=== PATIENT | male | born 1960 | race Two or more races ===

== ENCOUNTER 2024-07-05 11:25 | Emergency (ER) | payer OTHER ==
[~2024-07-05] VITALS: Ht 170.2 cm; Wt 70.1 kg
--- NOTE | 2024-07-05 12:08 | DVH ---
CLINICAL INDICATION: trauma TECHNIQUE: 3 radiographic views of the left wrist were obtained. Comparison: None FINDINGS/IMPRESSION: There is no evidence of acute fracture or dislocation. Moderate osteoarthrosis of the 1st carpometacarpal joint.
[2024-07-05 12:12] LABS: Basophils # (auto) 0 10 ^3/uL (0-0.2); Basophils % (auto) 0.8 % (0.0-2.0); Eosinophils # (auto) 0.1 10 ^3/uL (0-0.8); Eosinophils % (auto) 2.3 % (0.0-7.0); Hematocrit 42.6 % (41.0-53.0); Hemoglobin 14.7 g/dL (13.5-17.5); Lymphocytes # (auto) 2.2 10 ^3/uL (0.4-5.4); Lymphocytes % (auto) 38.3 % (10.0-50.0); Mean Corpuscular Hemoglobin 33.2 pg (28.0-32.0); Mean Corpuscular Hgb Conc. 34.6 g/dL (32.0-36.0); Monocytes # (auto) 0.6 10 ^3/uL (0-1.3); Monocytes % (auto) 9.9 % (0.0-12.0); Neutrophils # (auto) 2.8 10 ^3/uL (1.6-8.6); Neutrophils % (auto) 48.7 % (37.0-80.0); Nucleated Red Blood Cells % 0.1 %; Platelet Count (auto) 160 10^3/uL (140-450); Red Blood Cells 4.43 10^6/uL (4.5-5.90); White Blood Cell 5.7 10^3/uL (4.4-10.8)
--- NOTE | 2024-07-05 12:14 | ED.PDOC ---
History of Present Illness HPI Comments 64-year-old male who comes in with chief complaint of left wrist injury. The patient was cutting a pipe and then the pipe struck the left wrist and the patient has suffered a deep laceration to the area. The patient was having some issues with extending the left wrist. There has been no vomiting or diarrhea. The patient denies any other complaints at this time. Patient was not up-to-date with his tetanus status. Chief Complaint: Laceration Time Seen by MD: 11:48 Reviewed Notes: Nurses Notes, Medications, Allergies (NKDA) Allergies: Coded Allergies: NO KNOWN ALLERGIES (Unverified , 07/05/24) Information Source: Patient Mode of Arrival: Ambulatory Severity: Moderate Duration: Since onset Prehospital treatment: None Location: Left wrist laceration with some bleeding Past Medical History PAST MEDICAL HISTORY: Denies Surgical History: Denies all surgeries Family History Family History: Family hx of DM Social History Smoker: Non-Smoker Alcohol: Denies ETOH Use Drugs: Denies Drug Use Lives In: Home Constitutional: denies: chills, diaphoresis, fatigue, fever, malaise, sweats, weakness, others EENTM: denies: blurred vision, double vision, ear bleeding, ear discharge, ear drainage, ear pain, ear ringing, eye pain, eye redness, hearing loss, mouth pain, mouth swelling, nasal discharge, nose bleeding, nose congestion, nose pain, photophobia, tearing, throat pain, throat swelling, voice changes, others Respiratory: denies: cough, hemoptysis, orthopnea, SOB at rest, shortness of breath, SOB with excertion, stridor, wheezing, others Cardiovascular: denies: chest pain, dizzy spells, diaphoresis, Dyspnea on exertion, edema, irregular heart beat, left arm pain, lightheadedness, palpitations, PND, syncope, others Gastrointestinal: denies: abdomen distended, abdominal pain, blood streaked bowels, constipated, diarrhea, dysphagia, difficulty swallowing, hematemesis, melena, nausea, poor appetite, poor fluid intake, rectal bleeding, rectal pain, vomiting, others Genitourinary: denies: burning, dysuria, flank pain, frequency, hematuria, incontinence, penile discharge, penile sore, pain, testicle pain, testicle swelling, urgency, others Neurological: denies: dizziness, fainting, headache, left sided numbness, left sided weakness, numbness, paresthesia, pre-existing deficit, right sided numbness, right sided weakness, seizure, speech problems, tingling, tremors, weakness, others Musculoskeletal: reports: others (Left wrist injury); denies: back pain, gout, joint pain, joint swelling, muscle pain, muscle stiffness, neck pain Integumetry: reports: laceration (Laceration left wrist); denies: bruises, change in color, change in hair/nails, dryness, lesions, lumps, rash, wounds, others Allergic/Immunocompromised: denies: Difficulty Healing, Frequent Infections, Hives, Itching, others Hematologic/Lymphatic: denies: anemia, blood clots, easy bleeding, easy bruising, swollen glands, others Endocrine: denies: excessive hunger, excessive sweating, excessive thirst, excessive urination, flushing, intolerance to cold, intolerance to heat, unexplained weight gain, unexplained weight loss, others Psychiatric: denies: anxiety, bipolar disorder, depression, hopeless, panic disorder, schizophrenia, sleepless, suicidal, others Physical Exam General Appearance: Moderate Distress HEENT: Normal ENT Inspection, Pharynx Normal, TMs Normal Neck: Full Range of Motion, Non-Tender, Normal, Normal Inspection Respiratory: Chest Non-Tender, Lungs Clear, No Accessory Muscle Use, No Respiratory Distress, Normal Breath Sounds Cardiovascular: No Edema, No JVD, No Murmur, No Gallop, Normal Peripheral Pulses, Regular Rate/Rhythm Breast Exam: Deferred Gastrointestinal: No Organomegaly, Non Tender, No Pulsatile Mass, Normal Bowel Sounds, Soft Genitalia: Deferred Pelvic: Deferred Rectal: Deferred Extremities: No calf tenderness, Normal capillary refill, No pedal edema Musculoskeletal : Location: Left Extremity Location: Wrist (Large laceration that has complex and deep to the left wrist) Apperance: Normal Neurologic: Alert, 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 Was a procedure done?: Yes Sedation Sedation?: No Laceration Repair : Location Left hand dorsum of the left hand Length 7 cm Anesthetic: Lidocaine, Without epi Laceration Repair Prep: Saline Laceration Repair Wound Comple: epidermis/dermis repair Laceration Repair: Number of sutures (Seven sutures), Layers Closed (One layer closure), Size (Four 0 Ethilon), Nylon Informed consent obtained: Yes Risks, benefits, and alternati: Yes Differential Dx Considerations may include: Wrist laceration, fracture, strain X-Ray, Labs, Meds, VS Vital Signs Date Time Temp Pulse Resp B/P (MAP) Pulse Ox O2 Delivery O2 Flow Rate FiO2 07/05/24 16:45 87 19 118/67 (84) 98 07/05/24 16:00 69 20 91/45 (60) 96 07/05/24 15:00 81 16 121/70 (87) 97 07/05/24 14:42 97 15 97 Room Air* 0 21 07/05/24 14:42 98.0 97 15 118/74 (89) 97 98.0 07/05/24 12:18 79 16 97 Room Air 07/05/24 12:18 97.7 79 16 117/76 (90) 97 97.7 07/05/24 11:41 97.8 96 19 128/76 (93) 98 Lab Test 07/05/24 12:00 Range/Units White Blood Count 5.7 4.4-10.8 10^3/uL Red Blood Count 4.43 L 4.5-5.90 10^6/uL Hemoglobin 14.7 13.5-17.5 g/dL Hematocrit 42.6 41.0-53.0 % Mean Corpuscular Volume 96.0 80.0-100.0 fL Mean Corpuscular Hemoglobin 33.2 H 28.0-32.0 pg Mean Corpuscular Hemoglobin Concent 34.6 32.0-36.0 g/dL Red Cell Distribution Width 13.0 11.8-14.3 % Platelet Count 160 140-450 10^3/uL Mean Platelet Volume 9.7 6.9-10.8 fL Neutrophils (%) (Auto) 48.7 37.0-80.0 % Lymphocytes (%) (Auto) 38.3 10.0-50.0 % Monocytes (%) (Auto) 9.9 0.0-12.0 % Eosinophils (%) (Auto) 2.3 0.0-7.0 % Basophils (%) (Auto) 0.8 0.0-2.0 % Neutrophils # (Auto) 2.8 1.6-8.6 10 ^3/uL Lymphocytes # (Auto) 2.2 0.4-5.4 10 ^3/uL Monocytes # (Auto) 0.6 0-1.3 10 ^3/uL Eosinophils # (Auto) 0.1 0-0.8 10 ^3/uL Basophils # (Auto) 0 0-0.2 10 ^3/uL Nucleated Red Blood Cells 0.1 % Sodium Level 141 136-145 mmol/L Potassium Level 4.3 3.5-5.1 mmol/L Chloride Level 106 98-107 mmol/L Carbon Dioxide Level 29 20-31 mmol/L Anion Gap 6 5-15 Blood Urea Nitrogen 11 9-23 mg/dL Creatinine 0.90 0.700-1.30 mg/dL Glomerular Filtration Rate Calc 95 >90 mL/min BUN/Creatinine Ratio 12.2 10.0-20.0 Serum Glucose 128 H 74-106 mg/dL Calcium Level 10.0 8.7-10.4 mg/dL Current Medications Medications (Trade) Dose Ordered Sig/Rosalinda Route Start Time Stop Time Status Last Admin Sodium Chloride 500 ml @ 500 mls/hr Q1H ONCE IV 07/05/24 12:00 07/05/24 12:59 DC 07/05/24 12:25 Cefazolin Sodium 50 ml @ 100 mls/hr ONCE ONCE IV 07/05/24 12:00 07/05/24 12:29 DC 07/05/24 12:29 Diphtheria/ Tetanus/Acell Pertussis (Boostrix T-Dap) 0.5 ml ONCE ONCE IM 07/05/24 12:00 07/05/24 12:01 DC 07/05/24 12:24 Sodium Chloride 1,000 ml @ 1,000 mls/hr Q1H ONCE IV 07/05/24 16:15 07/05/24 17:14 DC 07/05/24 16:20 Neomycin/ Polymyxin/ Bacitracin (Triple Antibiotic) 1 applic ONCE ONCE TOP 07/05/24 16:15 07/05/24 16:16 DC 07/05/24 17:00 Acetaminophen (Tylenol Tablet) 650 mg ONCE ONCE PO 07/05/24 17:00 07/05/24 17:01 DC 07/05/24 17:00 The patient is felt somewhat diaphoretic during the procedure so the patient had an IV Hep-Lock placed and the patient was given a 1 L bolus of normal saline The patient was also given Ancef 1 g IV piggyback The patient was given a tetanus shot After the procedure was done, the patient was dressed in sterile fashion and the patient was given acetaminophen 650 mg by mouth for the pain. The patient's CBC and chemistry panel is within normal limits At this time, the patient was discharged The patient will follow up with the primary care doctor The patient will return to the emergency department's the condition worsens. Images Reviewed?: Images reviewed and evaluated by me Time of 1ST Reevaluation: 12:22 Reevaluation 1ST: Unchanged Patient Education/Counseling: Diagnosis, Treatment, Prognosis, Need For Follow Up Family Education/Counseling: No Family Present Departure 1 Departure Time of Disposition: 17:19 Impression: Primary Impression: Laceration of left hand Qualified Codes: S61.412A - Laceration without foreign body of left hand, initial encounter Disposition: 01 HOME / SELF CARE / HOMELESS Condition: Fair Discharged With: Self Critical Care Note Critical Care Time?: No Stability Stability form required: No Heart Score Heart Score: Heart Score Response (Comments) Value History N/A 0 EKG N/A 0 Age N/A 0 Risk Factors N/A 0 Troponin N/A 0 Total 0 PRIYA DE LOS SANTOS MD Jul 05, 2024 12:14
[2024-07-05 12:22] LABS: Chloride 106 mmol/L (98-107); Potassium 4.3 mmol/L (3.5-5.1); Sodium 141 mmol/L (136-145)
[2024-07-05 12:23] LABS: Anion Gap 6 (5-15); Carbon Dioxide 29 mmol/L (20-31)
[2024-07-05] MEDS: TETANUS-DIPTH-ACEL PERTUSSIS 0.5ML SYR Tdap IM ONE (12:24)
[2024-07-05] MEDS: SODIUM CHLORIDE 0.9% 500 ML IV ONE (12:25)
[2024-07-05] MEDS: LIDOCAINE 1% (LOCAL ANESTH.) PF 5ml SDV ID ONE (12:27)
[2024-07-05 12:28] LABS: BUN/Creatinine Ratio 12.2 (10.0-20.0); Blood Urea Nitrogen 11 mg/dL (9-23); Glucose 128 mg/dL (74-106)
[2024-07-05] MEDS: ceFAZolin 1GM/50ML 50 ML IV ONE (12:29)
[2024-07-05 14:42] VITALS: PULSE 97; RESP 15; O2SAT 97
[2024-07-05] MEDS: MORPHINE SULFATE 4 MG/ML SYR/VIAL IV ONE (15:47)
[2024-07-05] MEDS: ONDANSETRON HCL 4 MG/2 ML VIAL IV ONE (15:47)
[2024-07-05] MEDS: SODIUM CHLORIDE 0.9% 1,000 ML IV ONE (16:20)
[2024-07-05] MEDS: NEOMYCIN-BACITRACIN-POLYM UNITDOSE PKG TOP OINT TOP ONE (17:00)
[2024-07-05] MEDS: ACETAMINOPHEN 325 MG TAB PO ONE (17:00)
[2024-07-05 17:25] VITALS: BP 116/62; PULSE 86; RESP 17; TEMP 98; O2SAT 98
== END 2024-07-05 17:30 | disposition home or self-care (01) ==
LOC: ER 11:25
DX: S61.412A Laceration without foreign body of left hand, initial encounter (principal); X58.XXXA Exposure to other specified factors, initial encounter; Y93.89 Activity, other specified; Y92.89 Other specified places as the place of occurrence of the external cause; Y99.8 Other external cause status
CPT/HCPCS: 12042; 36415; 73110; 80048; 85025; 90471; 90715; 96361; 96365; 96366; 99285; J0690; J7030; 12002